=== PATIENT | female | born 1975 | race Caucasian/White ===

== ENCOUNTER 2019-08-05 19:21 | Emergency (ER) | payer BC, MEDICAID, OTHER ==
[~2019-08-05] VITALS: Ht 157.5 cm; Wt 86.2 kg
--- NOTE | 2019-08-05 20:04 | NUR ---
DR. MAYORGA AT BEDSIDE FOR MSE.
[2019-08-05] MEDS ORDERED: IV NORMAL SALINE 1000 ML BAG IV ONE (20:15)
[2019-08-05] MEDS ORDERED: ONDANSETRON 4 MG/2 ML VIAL IV ONE (20:15)
[2019-08-05] MEDS ORDERED: LORAZEPAM 0.5 MG TABLET PO ONE (20:30)
[2019-08-05] MEDS ORDERED: ONDANSETRON 4 MG/2 ML VIAL ONE (20:31)
[2019-08-05] MEDS ORDERED: LORAZEPAM 0.5 MG TABLET ONE (20:31)
[2019-08-05 20:33] LABS: BASOPHILS % (AUTO) 0.4 % (0.0-2.0); HEMOGLOBIN 13.1 g/dL (10.9-14.3); LYMPHOCYTES # (AUTO) 2.2 K/uL (20.0-40.0); LYMPHOCYTES % (AUTO) 21.1 % (20.5-51.5); MEAN CORPUSCULAR HEMOGLOBIN 28.8 uug (24.7-32.8); MEAN CORPUSCULAR HGB CONC 33 g/dL (32.3-35.6); MEAN CORPUSCULAR VOLUME 87.9 fL (75.5-95.3); MONOCYTES # (AUTO) 0.5 K/uL (2.0-10.0); MONOCYTES % (AUTO) 5.1 % (0.0-11.0); NEUTROPHILS # (AUTO) 7.5 K/uL (1.8-8.9); NEUTROPHILS % (AUTO) 73.4 % (38.5-71.5); PLATELET COUNT (AUTO) 423 K/uL (179-408); RED BLOOD CELL COUNT(AUTO) 4.55 MIL/uL (3.63-4.92); WHITE BLOOD COUNT (AUTO) 10.2 K/uL (3.8-11.8)
[2019-08-05 20:35] LABS: *BILIRUBIN,URIN NEGATIVE (NEGATIVE); *BLOOD, URINE 2+ (NEGATIVE); *CLARITY,URINE CLEAR (CLEAR); *COLOR,URINE YELLOW (YELLOW); *KETONES,URINE NEGATIVE (NEGATIVE); *UROBILINOGEN,URINE 0.2 E.U./dl (NORMAL); LEUKOCYTE ESTERASE ,URINE NEGATIVE (NEGATIVE); NITRITE, URINE NEGATIVE (NEGATIVE); UGLUCOSE NEGATIVE (NEGATIVE)
[2019-08-05 20:46] LABS: BILIRUBIN,DIRECT 0.1 mg/dL (0.0-0.2); BILIRUBIN,TOTAL 0.1 mg/dL (0.2-1.0); CREATININE 0.8 mg/dL (0.6-1.3); POTASSIUM 4.1 mmol/L (3.5-5.1)
[2019-08-05 20:55] LABS: BACTERIA,URINE FEW /HPF (NONE SEEN); WBC,URINE 0-3 /HPF (0-3)
[2019-08-05 20:56] LABS: SQUAMOUS EPITHELIAL CELL,UR MODERATE /HPF (NONE SEEN)
[2019-08-05 20:57] LABS: YEAST,URINE RARE /HPF (NONE SEEN)
[2019-08-05 21:33] VITALS: BP 143/88
--- NOTE | 2019-08-05 21:33 | NUR ---
Patient discharged to home in stable conditon. Written and verbal after care instructions given. Patient verbalizes understanding of instructions. PATIENT LEFT WITH STABLE GAIT.
== END 2019-08-05 21:34 | disposition home or self-care (01) ==
LOC: ER 19:22
DX: R11.10 Vomiting, unspecified (principal); R19.7 Diarrhea, unspecified; J45.909 Unspecified asthma, uncomplicated
CPT/HCPCS: 36415; 80048; 80076; 81000; 81001; 83690; 84702; 85025; 87086; 96361; 96374; 99283; J2405; A4663; J7030

== ENCOUNTER 2020-12-10 18:55 | Emergency (ER) | payer MEDICAID ==
[~2020-12-10] VITALS: Ht 157.5 cm; Wt 72.6 kg
--- NOTE | 2020-12-10 19:33 | NUR ---
MD ROLDAN in room to do MSE.
[2020-12-10] MEDS ORDERED: IV NORMAL SALINE 1000 ML BAG IV ONE (20:00)
[2020-12-10 20:13] LABS: BASOPHILS % (AUTO) 0.6 % (0.0-2.0); EOSINOPHILS % (AUTO) 0.5 % (0.0-7.0); HEMATOCRIT 39.1 % (31.2-41.9); HEMOGLOBIN 13.1 g/dL (10.9-14.3); LYMPHOCYTES # (AUTO) 3.1 K/uL (20.0-40.0); LYMPHOCYTES % (AUTO) 48.4 % (20.5-51.5); MEAN CORPUSCULAR HEMOGLOBIN 29.1 uug (24.7-32.8); MEAN CORPUSCULAR HGB CONC 33 g/dL (32.3-35.6); MEAN CORPUSCULAR VOLUME 87.1 fL (75.5-95.3); MONOCYTES # (AUTO) 0.5 K/uL (2.0-10.0); MONOCYTES % (AUTO) 8.3 % (0.0-11.0); NEUTROPHILS # (AUTO) 2.7 K/uL (1.8-8.9); NEUTROPHILS % (AUTO) 42.2 % (38.5-71.5); PLATELET COUNT (AUTO) 447 K/uL (179-408); RED BLOOD CELL COUNT(AUTO) 4.49 MIL/uL (3.63-4.92); WHITE BLOOD COUNT (AUTO) 6.4 K/uL (3.8-11.8)
[2020-12-10 20:20] LABS: CREATININE 0.7 mg/dL (0.6-1.3); POTASSIUM 3.1 mmol/L (3.5-5.1)
--- NOTE | 2020-12-10 20:21 | NUR ---
Patient is resting in bed, no acute distress noted at this time.
[2020-12-10 20:25] LABS: BILIRUBIN,DIRECT 0.1 mg/dL (0.0-0.2); BILIRUBIN,TOTAL 0.3 mg/dL (0.2-1.0); TOTAL PROTEIN, SERUM 7.6 g/dL (6.4-8.2)
[2020-12-10] MEDS ORDERED: POTASSIUM CHLORIDE 20 MEQ TAB.PRT.SR PO ONE (20:45)
[2020-12-10] MEDS ORDERED: POTASSIUM CHLORIDE 20 MEQ TAB.PRT.SR ONE (21:00)
[2020-12-10 21:40] VITALS: BP 136/99
--- NOTE | 2020-12-10 21:40 | NUR ---
Patient discharged to home in stable condition. Written and verbal after care instructions given. Patient verbalizes understanding of instructions. Stressed follow up or return to ER for worsening s/s. Patient ambulates without issue, given Rx, left with all belongings.
== END 2020-12-10 21:40 | disposition other institution (70) ==
LOC: ER 18:57
DX: R10.84 Generalized abdominal pain (principal); R19.7 Diarrhea, unspecified; J45.909 Unspecified asthma, uncomplicated
CPT/HCPCS: 36415; 83690; 85025; A4663; J7030

== ENCOUNTER 2021-03-10 18:52 | Emergency (ER) | payer MEDICAID ==
[~2021-03-10] VITALS: Ht 157.5 cm; Wt 66.7 kg
[2021-03-10] MEDS ORDERED: mesalamine PO (19:27)
--- NOTE | 2021-03-10 19:51 | NUR ---
MD Ramos in room to do MSE.
--- NOTE | 2021-03-10 20:09 | NUR ---
automotive brake technician in room to take blood from patient for labs.
[2021-03-10] MEDS: IV NORMAL SALINE 1000 ML BAG IV ONE ×2 (20:16→21:16)
[2021-03-10] MEDS: PANTOPRAZOLE SODIUM 40 MG VIAL IV ONE (20:17)
[2021-03-10] MEDS ORDERED: ONDANSETRON 4 MG/2 ML VIAL ONE (20:18)
[2021-03-10] MEDS ORDERED: PANTOPRAZOLE SODIUM 40 MG VIAL ONE (20:18)
[2021-03-10] MEDS: ONDANSETRON 4 MG/2 ML VIAL IV ONE (20:19)
[2021-03-10 20:24] LABS: *BILIRUBIN,URIN NEGATIVE (NEGATIVE); *CLARITY,URINE CLEAR (CLEAR); *COLOR,URINE YELLOW (YELLOW); *KETONES,URINE NEGATIVE (NEGATIVE); *UROBILINOGEN,URINE 0.2 E.U./dl (NORMAL); LEUKOCYTE ESTERASE ,URINE 1+ (NEGATIVE); NITRITE, URINE NEGATIVE (NEGATIVE); UGLUCOSE NEGATIVE (NEGATIVE)
[2021-03-10 20:26] LABS: BASOPHILS % (AUTO) 0.4 % (0.0-2.0); EOSINOPHILS % (AUTO) 0.3 % (0.0-7.0); HEMATOCRIT 34.6 % (31.2-41.9); HEMOGLOBIN 11.8 g/dL (10.9-14.3); LYMPHOCYTES # (AUTO) 2.3 K/uL (20.0-40.0); LYMPHOCYTES % (AUTO) 31.3 % (20.5-51.5); MEAN CORPUSCULAR HEMOGLOBIN 30.7 uug (24.7-32.8); MEAN CORPUSCULAR HGB CONC 34 g/dL (32.3-35.6); MEAN CORPUSCULAR VOLUME 90.5 fL (75.5-95.3); MONOCYTES # (AUTO) 0.6 K/uL (2.0-10.0); MONOCYTES % (AUTO) 8.5 % (0.0-11.0); NEUTROPHILS # (AUTO) 4.3 K/uL (1.8-8.9); NEUTROPHILS % (AUTO) 59.5 % (38.5-71.5); PLATELET COUNT (AUTO) 460 K/uL (179-408); RED BLOOD CELL COUNT(AUTO) 3.83 MIL/uL (3.63-4.92); WHITE BLOOD COUNT (AUTO) 7.2 K/uL (3.8-11.8)
[2021-03-10 20:27] LABS: *BLOOD, URINE TRACE LYSED (NEGATIVE)
[2021-03-10 20:32] LABS: ALANINE AMINOTRANSFERASE 29 U/L (14-59); ALKALINE PHOSPHATASE 52 U/L (50-136); ASPARTATE AMINOTRANSFERASE 16 U/L (15-37); BILIRUBIN,DIRECT 0.1 mg/dL (0.0-0.2); BILIRUBIN,TOTAL 0.2 mg/dL (0.2-1.0); CARBON DIOXIDE 30 mmol/L (21-32); CHLORIDE 99 mmol/L (98-107); CREATININE 0.7 mg/dL (0.6-1.3); GLUCOSE 113 mg/dL (74-106); LIPASE 130 U/L (73-393); TOTAL PROTEIN, SERUM 7.4 g/dL (6.4-8.2); UREA NITROGEN, BLOOD 3 mg/dL (7-18)
[2021-03-10 20:40] LABS: BACTERIA,URINE NONE SEEN /HPF (NONE SEEN); RBC,URINE 0-3 /HPF (0-3); SQUAMOUS EPITHELIAL CELL,UR FEW /HPF (NONE SEEN); WBC,URINE 0-3 /HPF (0-3)
--- NOTE | 2021-03-10 21:05 | NUR ---
Jana at bedside
[2021-03-10] MEDS: POTASSIUM CHLORIDE 20 MEQ TAB.PRT.SR PO ONE (21:16)
[2021-03-10] MEDS ORDERED: POTASSIUM CHLORIDE 20 MEQ TAB.PRT.SR ONE (21:36)
[2021-03-10] MEDS ORDERED: ONDA8TAB13 PO (22:11)
[2021-03-10 22:35] VITALS: BP 127/79
--- NOTE | 2021-03-10 22:35 | NUR ---
IV NS started 2115 and IV NS stop time was 2215.
--- NOTE | 2021-03-10 22:35 | NUR ---
Patient discharged to home in stable condition. Written and verbal after care instructions given. Patient verbalizes understanding of instructions. Stressed follow up or return to ER for worsening s/s. Patient ambulates with steady gait, V/S stable, IV line removed, patient left with all personal belongings.
== END 2021-03-10 22:35 | disposition home or self-care (01) ==
LOC: ER 18:52
DX: K52.9 Noninfective gastroenteritis and colitis, unspecified (principal); K29.70 Gastritis, unspecified, without bleeding; E87.6 Hypokalemia; R11.10 Vomiting, unspecified; J45.909 Unspecified asthma, uncomplicated; Z82.49 Family history of ischemic heart disease and other diseases of the circulatory system
CPT/HCPCS: 36415; 80048; 80076; 81001; 83690; 84702; 85025; 96361 ×2; 96374; 96375; 99284; C9113; J2405; A4663; J7030

== ENCOUNTER 2023-01-02 12:23 | Emergency (ER) | payer MEDICAID ==
[~2023-01-02] VITALS: Ht 157.5 cm; Wt 54.4 kg
[~2023-01-02 12:23] MED LIST: ONDA8TAB13 PO; mesalamine PO
--- NOTE | 2023-01-02 13:01 | NUR ---
Pt seen by Safety measures in place. Will continue to monitor.
[2023-01-02] MEDS ORDERED: IV NORMAL SALINE 1000 ML BAG IV ONE (13:15)
[2023-01-02] MEDS ORDERED: ACETAMINOPHEN ES 500 MG TABLET PO ONE (13:15)
[2023-01-02] MEDS ORDERED: ACETAMINOPHEN ES 500 MG TABLET ONE (13:20)
[2023-01-02 13:40] LABS: HEMATOCRIT 37.4 % (31.2-41.9); MEAN CORPUSCULAR HEMOGLOBIN 30.2 uug (24.7-32.8); MEAN CORPUSCULAR VOLUME 90.2 fL (75.5-95.3); PLATELET COUNT (AUTO) 412 K/uL (179-408)
[2023-01-02 13:49] LABS: CREATININE 0.7 mg/dL (0.6-1.3); POTASSIUM 3.3 mmol/L (3.5-5.1)
[2023-01-02 13:55] LABS: BILIRUBIN,DIRECT 0.1 mg/dL (0.0-0.2); BILIRUBIN,TOTAL 0.3 mg/dL (0.2-1.0); TOTAL PROTEIN, SERUM 7.5 g/dL (6.4-8.2)
--- NOTE | 2023-01-02 14:05 | NUR ---
Pt walked to bathroom w/ steady gait, urine collected and taken to LAB.
[2023-01-02 15:02] LABS: *BILIRUBIN,URIN NEGATIVE (NEGATIVE); *CLARITY,URINE CLEAR (CLEAR); *COLOR,URINE YELLOW (YELLOW); *KETONES,URINE NEGATIVE (NEGATIVE); *UROBILINOGEN,URINE 0.2 E.U./dl (NORMAL); LEUKOCYTE ESTERASE ,URINE NEGATIVE (NEGATIVE); NITRITE, URINE NEGATIVE (NEGATIVE); UGLUCOSE NEGATIVE (NEGATIVE)
[2023-01-02 15:17] LABS: *BLOOD, URINE NEGATIVE (NEGATIVE)
[2023-01-02 15:18] LABS: *URINE HCG, QUAL NEGATIVE (NEGATIVE); BACTERIA,URINE FEW /HPF (NONE SEEN); SQUAMOUS EPITHELIAL CELL,UR FEW /HPF (NONE SEEN); WBC,URINE 0-3 /HPF (0-3)
--- NOTE | 2023-01-02 16:07 | NUR ---
IV removed. Catheter intact and site benign. Pressure and 4x4 gauze applied to site. No bleeding noted.
[2023-01-02 16:08] VITALS: BP 115/70
--- NOTE | 2023-01-02 16:08 | NUR ---
Patient discharged to home in stable condition. Written and verbal after care instructions given. Patient verbalizes understanding of instructions. Stressed follow up or return to ER for worsening s/s.
== END 2023-01-02 16:08 | disposition home or self-care (01) ==
LOC: ER 12:23
DX: R19.7 Diarrhea, unspecified (principal); E87.6 Hypokalemia; Z86.16 Personal history of COVID-19; J45.909 Unspecified asthma, uncomplicated
CPT/HCPCS: 99284; 96360; 80076; 80048; 81001; 84703; 83690; 85025; 85651; 36415; J7040; A4663; A9150

== ENCOUNTER 2023-02-21 07:55 | Emergency (ER) | payer BC, OTHER ==
[~2023-02-21] VITALS: Ht 157.5 cm; Wt 56.7 kg
--- NOTE | 2023-02-21 08:00 | NUR ---
RECEIVED PT IN NAD; VSS. PT COMPLAINS OF ABD. PAIN 03/25 ; N/V/D X2 DAYS.
[2023-02-21] MEDS ORDERED: MORPHINE SULFATE 4 MG/1 ML DISP.SYRIN ONE (08:40)
[2023-02-21] MEDS ORDERED: ONDANSETRON 4 MG/2 ML VIAL ONE (08:40)
[2023-02-21] MEDS ORDERED: IV NS 1000 ML 1,000 ML IV ONE (08:45)
[2023-02-21] MEDS ORDERED: ONDANSETRON 4 MG/2 ML VIAL IV ONE (08:45)
[2023-02-21] MEDS ORDERED: MORPHINE SULFATE 4 MG/1 ML DISP.SYRIN IV ONE (08:45)
[2023-02-21 08:56] LABS: HEMATOCRIT 35.9 % (31.2-41.9); MEAN CORPUSCULAR VOLUME 92.3 fL (75.5-95.3); PLATELET COUNT (AUTO) 360 K/uL (179-408)
[2023-02-21 09:08] LABS: CARBON DIOXIDE 25 mmol/L (21-32); CHLORIDE 96 mmol/L (98-107); CREATININE 0.9 mg/dL (0.6-1.3); GLUCOSE 106 mg/dL (74-106); POTASSIUM 4.1 mmol/L (3.5-5.1); UREA NITROGEN, BLOOD 9 mg/dL (7-18)
[2023-02-21] MEDS ORDERED: IV NORMAL SALINE 250 ML IV ONE (09:09)
[2023-02-21] MEDS ORDERED: IOHEXOL 300MG/ML 100 ML INFUS..BTL ONE (09:09)
[2023-02-21] MEDS ORDERED: SWABABLE VALVE TRANSFER SET EA MC ONE (09:09)
[2023-02-21 09:18] LABS: ALANINE AMINOTRANSFERASE 17 U/L (14-59); ALKALINE PHOSPHATASE 48 U/L (50-136); ASPARTATE AMINOTRANSFERASE 10 U/L (15-37); BILIRUBIN,DIRECT 0.3 mg/dL (0.0-0.2); BILIRUBIN,TOTAL 0.7 mg/dL (0.2-1.0); LIPASE 42 U/L (73-393); TOTAL PROTEIN, SERUM 7.8 g/dL (6.4-8.2)
--- NOTE | 2023-02-21 09:25 | NUR ---
PT TO CT SCAN
[2023-02-21 10:35] LABS: *BILIRUBIN,URIN NEGATIVE (NEGATIVE); *BLOOD, URINE 2+ (NEGATIVE); *CLARITY,URINE CLEAR (CLEAR); *COLOR,URINE YELLOW (YELLOW); *KETONES,URINE 1+ (NEGATIVE); *UROBILINOGEN,URINE 0.2 E.U./dl (NORMAL); LEUKOCYTE ESTERASE ,URINE TRACE (NEGATIVE); NITRITE, URINE NEGATIVE (NEGATIVE); PH,URINE 6.5 (5.0-8.0); UGLUCOSE NEGATIVE (NEGATIVE)
[2023-02-21 11:15] LABS: BACTERIA,URINE NONE SEEN /HPF (NONE SEEN); CALCIUM CARBONATE CRYSTALS,UR NONE SEEN /HPF (NONE SEEN); CALCIUM OXALATE CRYSTALS,UR NONE SEEN /HPF (NONE SEEN); CALCIUM PHOSPHATE CRYSTALS,UR NONE SEEN /HPF (NONE SEEN); COARSE GRANULAR CASTS,URINE NONE SEEN /LPF; CYSTINE CRYSTALS,URINE NONE SEEN /HPF (NONE SEEN); FATTY CASTS,URINE NONE SEEN /LPF (NONE SEEN); MUCUS,URINE NONE SEEN /LPF (0-FEW); RED BLOOD CELL CASTS,URINE NONE SEEN /LPF (NONE SEEN); SPERM,URINE NONE SEEN /HPF (NONE SEEN); SQUAMOUS EPITHELIAL CELL,UR FEW /HPF (NONE SEEN); TRICHOMONAS,URINE NONE SEEN /HPF (NONE SEEN); TRIPLE PHOSPHATE CRYSTAL,UR NONE SEEN /HPF (NONE SEEN); TYROSINE CRYSTAL,URINE NONE SEEN /HPF (NONE SEEN); URIC ACID CRYSTALS,URINE NONE SEEN /HPF (NONE SEEN); URINE AMORPHOUS PHOSPHATES NONE SEEN /HPF; URINE AMORPHOUS URATE NONE SEEN /HPF; WAXY CASTS,URINE NONE SEEN /LPF (NONE SEEN); WBC,URINE 0-3 /HPF (0-3); YEAST,URINE NONE SEEN /HPF (NONE SEEN)
[2023-02-21] MEDS ORDERED: ONDA4TAB11 PO (12:51)
--- NOTE | 2023-02-21 13:13 | NUR ---
IV removed. Catheter intact and site benign. Pressure and 4x4 gauze applied to site. No bleeding noted.
[2023-02-21 13:14] VITALS: BP 126/82
== END 2023-02-21 13:15 | disposition home or self-care (01) ==
LOC: ER 07:55
DX: K52.9 Noninfective gastroenteritis and colitis, unspecified (principal); J45.909 Unspecified asthma, uncomplicated; R10.2 Pelvic and perineal pain; Z79.899 Other long term (current) drug therapy
CPT/HCPCS: 36415; 83690; 85025; 93005; A4663; J2270; J2405; J7040; Q9967

== ENCOUNTER 2023-07-23 17:16 | Emergency (ER) | payer BC, OTHER ==
[~2023-07-23] VITALS: Ht 157.5 cm; Wt 61.2 kg
[~2023-07-23 17:16] MED LIST changes: +ONDA4TAB11 PO
[2023-07-23] MEDS ORDERED: IV NORMAL SALINE 1000 ML BAG IV ONE (18:00)
[2023-07-23] MEDS ORDERED: DEXAMETHASONE SOD PHOSPHATE 4 MG INJ IV ONE (18:00)
[2023-07-23] MEDS ORDERED: DEXAMETHASONE SOD PHOSPHATE 10 MG INJ ONE (18:12)
[2023-07-23 18:36] LABS: CALCIUM 9.4 mg/dL (8.5-10.1); CARBON DIOXIDE 30 mmol/L (21-32); CHLORIDE 95 mmol/L (98-107); CREATININE 0.8 mg/dL (0.6-1.3); GLUCOSE 99 mg/dL (74-106); POTASSIUM 2.9 mmol/L (3.5-5.1); SODIUM SERUM 135 mmol/L (136-145); UREA NITROGEN, BLOOD 4 mg/dL (7-18)
[2023-07-23 18:41] LABS: BASOPHILS % (AUTO) 0.5 % (0.0-2.0); EOSINOPHILS # (AUTO) 0.1 K/uL (0.0-0.7); EOSINOPHILS % (AUTO) 1.1 % (0.0-7.0); HEMATOCRIT 36.9 % (31.2-41.9); HEMOGLOBIN 12.2 g/dL (10.9-14.3); LYMPHOCYTES # (AUTO) 1.4 K/uL (0.8-4.8); MEAN CORPUSCULAR HEMOGLOBIN 29.9 uug (24.7-32.8); MEAN CORPUSCULAR HGB CONC 33 g/dL (32.3-35.6); MEAN CORPUSCULAR VOLUME 90.2 fL (75.5-95.3); MONOCYTES # (AUTO) 0.5 K/uL (0.1-1.30); MONOCYTES % (AUTO) 9.8 % (0.0-11.0); NEUTROPHILS % (AUTO) 59.6 % (38.5-71.5); PLATELET COUNT (AUTO) 428 K/uL (179-408); RED BLOOD CELL COUNT(AUTO) 4.09 MIL/uL (3.63-4.92); RED CELL DISTRIBUTION WIDTH 13.8 % (12.3-17.7); WHITE BLOOD COUNT (AUTO) 4.9 K/uL (3.8-11.8)
[2023-07-23 18:49] LABS: ALANINE AMINOTRANSFERASE 19 U/L (14-59); ALBUMIN 3.9 g/dL (3.4-5.0); ALKALINE PHOSPHATASE 65 U/L (50-136); ASPARTATE AMINOTRANSFERASE 14 U/L (15-37); BILIRUBIN,DIRECT 0.1 mg/dL (0.0-0.2); BILIRUBIN,TOTAL 0.3 mg/dL (0.2-1.0); NT-PRO BNP 84 pg/mL (0-125); TOTAL PROTEIN, SERUM 8.7 g/dL (6.4-8.2)
[2023-07-23] MEDS ORDERED: POTASSIUM CHLORIDE 20 MEQ TAB.PRT.SR PO ONE (19:30)
[2023-07-23] MEDS ORDERED: POTASSIUM CHLORIDE 20 MEQ TAB.PRT.SR ONE (19:51)
[2023-07-23 21:15] VITALS: BP 113/63; TEMP 98.6; O2SAT 98
== END 2023-07-23 21:05 | disposition home or self-care (01) ==
LOC: ER 17:24
DX: R11.10 Vomiting, unspecified (principal); R19.7 Diarrhea, unspecified; E87.6 Hypokalemia; J45.909 Unspecified asthma, uncomplicated; Z79.899 Other long term (current) drug therapy; Z20.822 Contact with and (suspected) exposure to COVID-19
CPT/HCPCS: 99284; 96374; 71045; 96361; 87426; 87804 ×2; 80076; 80048; 83880; 85025; 84145; 85730; 87040 ×2; 84484; 36415; 83605; J1100; J7040; A4663

== ENCOUNTER 2023-07-27 19:29 | Emergency (ER) | payer BC, OTHER ==
[~2023-07-27] VITALS: Ht 157.5 cm; Wt 61.2 kg
[2023-07-27] MEDS ORDERED: KETOROLAC TROMETHAMINE 15 MG INJ IVP ONE (20:00)
[2023-07-27] MEDS ORDERED: IV NORMAL SALINE 1000 ML BAG IV ONE (20:00)
[2023-07-27] MEDS ORDERED: FAMOTIDINE. 20 MG/2 ML VIAL IV ONE (20:00)
[2023-07-27] MEDS ORDERED: ONDANSETRON 4 MG/2 ML VIAL IV ONE (20:00)
[2023-07-27] MEDS ORDERED: KETOROLAC TROMETHAMINE 15 MG INJ ONE (20:20)
[2023-07-27 20:29] LABS: BASOPHILS # (AUTO) 0.2 K/UL (0.0-0.2); BASOPHILS % (AUTO) 3.3 % (0.0-2.0); EOSINOPHILS # (AUTO) 0.2 K/uL (0.0-0.7); EOSINOPHILS % (AUTO) 3.4 % (0.0-7.0); HEMATOCRIT 38.3 % (31.2-41.9); HEMOGLOBIN 12.8 g/dL (10.9-14.3); LYMPHOCYTES # (AUTO) 1.9 K/uL (0.8-4.8); LYMPHOCYTES % (AUTO) 40.1 % (20.5-51.5); MEAN CORPUSCULAR HEMOGLOBIN 29.9 uug (24.7-32.8); MEAN CORPUSCULAR HGB CONC 33 g/dL (32.3-35.6); MEAN CORPUSCULAR VOLUME 89.6 fL (75.5-95.3); MONOCYTES # (AUTO) 0.4 K/uL (0.1-1.30); MONOCYTES % (AUTO) 9.1 % (0.0-11.0); NEUTROPHILS # (AUTO) 2.1 K/uL (1.8-8.9); NEUTROPHILS % (AUTO) 44.1 % (38.5-71.5); PLATELET COUNT (AUTO) 463 K/uL (179-408); RED BLOOD CELL COUNT(AUTO) 4.27 MIL/uL (3.63-4.92); RED CELL DISTRIBUTION WIDTH 13.6 % (12.3-17.7); WHITE BLOOD COUNT (AUTO) 4.8 K/uL (3.8-11.8)
[2023-07-27 20:31] LABS: CALCIUM 9.4 mg/dL (8.5-10.1); CREATININE 0.7 mg/dL (0.6-1.3); POTASSIUM 3.3 mmol/L (3.5-5.1)
[2023-07-27 20:37] LABS: ALBUMIN 3.8 g/dL (3.4-5.0); BILIRUBIN,DIRECT 0.1 mg/dL (0.0-0.2); BILIRUBIN,TOTAL 0.3 mg/dL (0.2-1.0); TOTAL PROTEIN, SERUM 8.2 g/dL (6.4-8.2)
[2023-07-27] MEDS ORDERED: PHYT5TAB GT (21:45)
[2023-07-27] MEDS ORDERED: PHYTONADIONE 5 MG TABLET PO ONE (21:45)
[2023-07-27] MEDS ORDERED: POTASSIUM CHLORIDE 20 MEQ TAB.PRT.SR PO ONE (21:45)
[2023-07-27] MEDS ORDERED: ONDA4TAB11 PO (21:45)
[2023-07-27 22:17] VITALS: BP 117/75; TEMP 98.5; O2SAT 99
== END 2023-07-27 22:18 | disposition home or self-care (01) ==
LOC: ER 19:33
DX: R11.0 Nausea (principal); R19.7 Diarrhea, unspecified; E87.6 Hypokalemia; K90.9 Intestinal malabsorption, unspecified; R10.9 Unspecified abdominal pain; R79.1 Abnormal coagulation profile; J45.909 Unspecified asthma, uncomplicated; Z79.899 Other long term (current) drug therapy
CPT/HCPCS: 99284; 96374; 96375; 96361; 80076; 80048; 83690; 83735; 85025; 85610; 36415; J3490; J1885; J2405; J7040; A4606; A4663

== ENCOUNTER 2023-10-29 14:15 | Emergency (ER) | payer BC, OTHER ==
[~2023-10-29] VITALS: Ht 157.5 cm; Wt 63.5 kg
[~2023-10-29 14:15] MED LIST changes: +PHYT5TAB GT
[2023-10-29] MEDS ORDERED: FAMO20TA8 PO (14:49)
[2023-10-29] MEDS ORDERED: [UNRECOGNIZED DRUG - OTHER] (14:49)
[2023-10-29] MEDS ORDERED: BUDE0.5A4 NEB (14:49)
[2023-10-29] MEDS ORDERED: ACET1TAB23 PO (14:53)
[2023-10-29 15:03] VITALS: BP 114/77; O2SAT 98
== END 2023-10-29 15:03 | disposition home or self-care (01) ==
LOC: ER 14:36
DX: S46.912A Strain of unspecified muscle, fascia and tendon at shoulder and upper arm level, left arm, initial encounter (principal); J45.909 Unspecified asthma, uncomplicated; Z79.899 Other long term (current) drug therapy; X50.1XXA Overexertion from prolonged static or awkward postures, initial encounter; Y93.89 Activity, other specified; Y92.89 Other specified places as the place of occurrence of the external cause; Y99.8 Other external cause status
CPT/HCPCS: A4606; A4663

== ENCOUNTER 2024-12-03 21:16 | Inpatient (IN) | payer BC ==
[~2024-12-03] VITALS: Ht 154.9 cm; Wt 63.5 kg
[~2024-12-03 21:16] MED LIST changes: +ACET1TAB23 PO; +BUDE0.5A4 NEB; +FAMO20TA8 PO; +[UNRECOGNIZED DRUG - OTHER]
[2024-12-03] MEDS ORDERED: ONDANSETRON 4 MG/2 ML VIAL ONE (23:45)
[2024-12-03] MEDS ORDERED: HYDROMORPHONE 1 MG/1 ML DISP.SYRIN ONE (23:46)
[2024-12-03 23:50] LABS: BASOPHILS % (AUTO) 0.1 % (0.0-2.0); HEMATOCRIT 39.5 % (31.2-41.9); HEMOGLOBIN 13.3 g/dL (10.9-14.3); LYMPHOCYTES # (AUTO) 0.5 K/uL (0.8-4.8); LYMPHOCYTES % (AUTO) 1.7 % (20.5-51.5); MEAN CORPUSCULAR HEMOGLOBIN 30.3 uug (24.7-32.8); MEAN CORPUSCULAR HGB CONC 34 g/dL (32.3-35.6); MEAN CORPUSCULAR VOLUME 90.2 fL (75.5-95.3); MONOCYTES # (AUTO) 1.4 K/uL (0.1-1.30); MONOCYTES % (AUTO) 4.9 % (0.0-11.0); NEUTROPHILS # (AUTO) 25.9 K/uL (1.8-8.9); NEUTROPHILS % (AUTO) 93.3 % (38.5-71.5); PLATELET COUNT (AUTO) 342 K/uL (179-408); RED BLOOD CELL COUNT(AUTO) 4.38 MIL/uL (3.63-4.92); RED CELL DISTRIBUTION WIDTH 13.9 % (12.3-17.7); WHITE BLOOD COUNT (AUTO) 27.8 K/uL (3.8-11.8)
[2024-12-03 23:53] LABS: DIFFERENTIAL COMMENT 1
[2024-12-03] MEDS ORDERED: methylPREDNISolone SOD SUCC 125 MG/2 ML VIAL ONE (23:57)
[2024-12-03 23:58] LABS: CALCIUM 8.6 mg/dL (8.5-10.1); CARBON DIOXIDE 25 mmol/L (21-32); CHLORIDE 96 mmol/L (98-107); CREATININE 1.6 mg/dL (0.6-1.3); GLUCOSE 131 mg/dL (74-106); POTASSIUM 3.4 mmol/L (3.5-5.1); SODIUM SERUM 134 mmol/L (136-145); UREA NITROGEN, BLOOD 17 mg/dL (7-18)
[2024-12-03] MEDS ORDERED: AZITHROMYCIN 500MG/ D5W 250ML IVPB **ER PYXIS ONLY IV ONE (23:58)
[2024-12-03] MEDS ORDERED: ALBUTEROL SULFATE 2.5 MG/3 ML NEBU ONE (23:59)
[2024-12-03] MEDS ORDERED: IPRATROPIUM BROMIDE 0.5 MG/2.5 ML NEBU ONE (23:59)
[2024-12-04] VITALS (19 sets, daily range): BP systolic 99–140; BP diastolic 67–93; TEMP 97.8–98.7; O2SAT 89–100
[2024-12-04] MEDS: methylPREDNISolone SOD SUCC 125 MG/2 ML VIAL IV ONE
[2024-12-04] MEDS: ONDANSETRON 4 MG/2 ML VIAL IV ONE (00:01)
[2024-12-04] MEDS: HYDROMORPHONE 1 MG/1 ML DISP.SYRIN IV ONE ×2 (00:02→02:23)
[2024-12-04] MEDS: AZITHROMYCIN IV 500 MG in IV DEXTROSE 5% 250 ML IV ONE (00:04)
[2024-12-04] MEDS: ALBUTEROL SULFATE 2.5 MG/3 ML NEBU NEB ONE (00:07)
[2024-12-04] MEDS: IPRATROPIUM BROMIDE 0.5 MG/2.5 ML NEBU NEB ONE (00:07)
[2024-12-04 00:11] LABS: ALANINE AMINOTRANSFERASE 23 U/L (14-59); ALBUMIN 2.8 g/dL (3.4-5.0); ALKALINE PHOSPHATASE 88 U/L (50-136); ASPARTATE AMINOTRANSFERASE 19 U/L (15-37); BILIRUBIN,DIRECT 0.6 mg/dL (0.0-0.2); BILIRUBIN,TOTAL 0.9 mg/dL (0.2-1.0); NT-PRO BNP 919 pg/mL (0-125)
[2024-12-04] MEDS: IV NORMAL SALINE 1000 ML BAG IV ONE ×2 (00:43→02:38)
[2024-12-04] MEDS ORDERED: TRAM50TA2 PO (00:45)
[2024-12-04] MEDS ORDERED: FLUT1BLS6 (00:45)
[2024-12-04] MEDS ORDERED: CEFTRIAXONE /D5W 50ML IVPB **ER PYXIS IV ONE (00:45)
[2024-12-04] MEDS ORDERED: SUMA100T16 PO (00:45)
[2024-12-04] MEDS ORDERED: ALBUTEROL SULFATE 2.5 MG/3 ML NEBU ONE (00:53)
[2024-12-04] MEDS: CEFTRIAXONE 1 G in IV DEXTROSE 5% 50 ML IV ONE (01:09)
[2024-12-04] MEDS ORDERED: SWABABLE VALVE TRANSFER SET EA MC ONE (01:13)
[2024-12-04] MEDS ORDERED: IV NORMAL SALINE 250 ML IV ONE (01:13)
[2024-12-04] MEDS ORDERED: IOHEXOL 350 100 ML INFUS..BTL ONE (01:14)
[2024-12-04 02:21] LABS: LACTIC ACID 4.4 mmol/L (0.4-2.0)
[2024-12-04] MEDS ORDERED: HYDROMORPHONE 1 MG/1 ML DISP.SYRIN ONE (02:21)
[2024-12-04 02:37] LABS: ABG BASE EXCESS -8.1 mmol/L (-2.0-3.0); ABG HCO3 19.8 mmol/L (21.0-28.0); ABG PCO2 49.5 mmHg (32.0-45.0); ABG PH 7.219 (7.350-7.450); ABG PO2 104.1 mmHg (83.0-108.0); ABG SITE RIGHT RADIAL; ABG TOTAL HEMOGLOBIN 13.6 G/dL (12.0-16.0); AaDO2 96.6 mmHg; COHb 0.3 % (0.5-1.5); MetHb 0.2 % (0.0-1.5); O2Hb 96.5 % (94.0-98.0)
[2024-12-04] MEDS ORDERED: ONDANSETRON 4 MG/2 ML VIAL IV PRN (03:45)
[2024-12-04] MEDS ORDERED: REMEDY ESSENTIAL ZINC PASTE 113 GM TP PRN (03:45)
[2024-12-04] MEDS ORDERED: LEVALBUTEROL HCL NEB 0.63 MG/3 ML NEBU NEB PRN (03:45)
[2024-12-04 05:11] LABS: BASOPHILS % (AUTO) 0.1 % (0.0-2.0); EOSINOPHILS % (AUTO) 0.1 % (0.0-7.0); HEMATOCRIT 41.8 % (31.2-41.9); HEMOGLOBIN 13.8 g/dL (10.9-14.3); LYMPHOCYTES # (AUTO) 0.6 K/uL (0.8-4.8); LYMPHOCYTES % (AUTO) 3.5 % (20.5-51.5); MEAN CORPUSCULAR HEMOGLOBIN 29.9 uug (24.7-32.8); MEAN CORPUSCULAR HGB CONC 33 g/dL (32.3-35.6); MEAN CORPUSCULAR VOLUME 90.7 fL (75.5-95.3); MONOCYTES # (AUTO) 0.7 K/uL (0.1-1.30); MONOCYTES % (AUTO) 3.6 % (0.0-11.0); NEUTROPHILS # (AUTO) 17.1 K/uL (1.8-8.9); NEUTROPHILS % (AUTO) 92.7 % (38.5-71.5); PLATELET COUNT (AUTO) 341 K/uL (179-408); RED BLOOD CELL COUNT(AUTO) 4.61 MIL/uL (3.63-4.92); WHITE BLOOD COUNT (AUTO) 18.4 K/uL (3.8-11.8)
[2024-12-04] MEDS: LORAZEPAM 2 MG/1 ML VIAL IV ONE (05:11)
[2024-12-04 05:29] LABS: DIFFERENTIAL COMMENT 1
[2024-12-04 05:35] LABS: *AMPHETAMINE, URINE NEGATIVE (NEGATIVE); *BARBITURATE, URINE NEGATIVE (NEGATIVE); *BENZODIAZEPINE, URINE NEGATIVE (NEGATIVE); *CANNABINOID, URINE NEGATIVE (NEGATIVE); *COCCAINE, URINE NEGATIVE (NEGATIVE); *OPIATE, URINE POSITIVE (NEGATIVE); *PHENCYCLIDINE SCREEN,URINE NEGATIVE (NEGATIVE); FENTANYL, URINE NEGATIVE (NEGATIVE)
[2024-12-04 05:45] LABS: *BILIRUBIN,URIN NEGATIVE (NEGATIVE); *BLOOD, URINE 2+ (NEGATIVE); *CLARITY,URINE CLEAR (CLEAR); *COLOR,URINE YELLOW (YELLOW); *KETONES,URINE NEGATIVE (NEGATIVE); *PROTEIN,URINE 2+ (NEGATIVE); *UROBILINOGEN,URINE 0.2 E.U./dl (NORMAL); LEUKOCYTE ESTERASE ,URINE NEGATIVE (NEGATIVE); NITRITE, URINE NEGATIVE (NEGATIVE); PH,URINE 5.5 (5.0-8.0); UGLUCOSE NEGATIVE (NEGATIVE)
[2024-12-04 05:48] LABS: CALCIUM 8.1 mg/dL (8.5-10.1); CREATININE 1.2 mg/dL (0.6-1.3); PHOSPHOROUS 4.1 mg/dL (2.5-4.9); POTASSIUM 3.3 mmol/L (3.5-5.1)
[2024-12-04 06:02] LABS: MAGNESIUM 1.9 mg/dL (1.8-2.4)
[2024-12-04 06:03] LABS: BACTERIA,URINE MODERATE /HPF (NONE SEEN); WBC,URINE 0-3 /HPF (0-3)
[2024-12-04 06:04] LABS: SQUAMOUS EPITHELIAL CELL,UR MODERATE /HPF (NONE SEEN); YEAST,URINE MODERATE /HPF (NONE SEEN)
[2024-12-04 06:05] LABS: URINE AMORPHOUS URATE FEW /HPF
[2024-12-04 06:35] LABS: ABG HCO3 19.4 mmol/L (21.0-28.0); ABG PCO2 46.3 mmHg (32.0-45.0); ABG PH 7.239 (7.350-7.450); ABG SITE RIGHT RADIAL; COHb 0.1 % (0.5-1.5); MetHb 0.3 % (0.0-1.5); O2Hb 97.1 % (94.0-98.0)
[2024-12-04] MEDS: IV NS 1000 ML 1,000 ML IV PRN (06:51)
[2024-12-04] MEDS ORDERED: NOREPINEPHRINE BITARTRATE 32 MG in IV NORMAL SALINE 218 ML IV PRN (08:30)
[2024-12-04] MEDS ORDERED: PROPOFOL 50 ML IV PRN (08:30)
[2024-12-04] MEDS ORDERED: NOREPINEPHRINE 8MG/NS 250ML 250 ML IV PRN (08:45)
[2024-12-04] MEDS: FLUCONAZOLE 200 MG/NS 100ML IV 200 MG in PREMIXED 1 EACH IV ONE (10:17)
[2024-12-04] MEDS: CEFEPIME HCL 2 GM in IV DEXTROSE 5% 100 ML IV SCH (10:17)
[2024-12-04] MEDS: ENOXAPARIN SODIUM 40 MG/0.4 ML DISP.SYRIN SQ SCH (10:18)
[2024-12-04] MEDS: PANTOPRAZOLE SODIUM 40 MG VIAL IV SCH (10:19)
[2024-12-04] MEDS: methylPREDNISolone SOD SUCC 125 MG/2 ML VIAL IV SCH (10:20)
[2024-12-04] MEDS: MAGNESIUM SULFATE/D5W 100 ML IV SCH (10:21)
[2024-12-04 10:28] LABS: ABG BASE EXCESS -8.8 mmol/L (-2.0-3.0); ABG HCO3 18.3 mmol/L (21.0-28.0); ABG PCO2 43.4 mmHg (32.0-45.0); ABG PH 7.242 (7.350-7.450); ABG SITE RIGHT RADIAL; ABG TOTAL HEMOGLOBIN 13.7 G/dL (12.0-16.0); AaDO2 92.4 mmHg; COHb 0.3 % (0.5-1.5); MetHb 0.3 % (0.0-1.5); O2Hb 92.5 % (94.0-98.0); VT, ABG 400 mL
[2024-12-04] MEDS: PROPOFOL 100 ML IV PRN ×2 (11:33→15:34)
[2024-12-04] MEDS: POTASSIUM CHLORIDE 50 ML IV SCH (12:46)
[2024-12-04] MEDS: IPRATROPIUM BROMIDE 0.5 MG/2.5 ML NEBU NEB SCH (13:15)
[2024-12-04] MEDS: LEVALBUTEROL HCL NEB 0.63 MG/3 ML NEBU NEB SCH (13:15)
[2024-12-04] MEDS ORDERED: ETOMIDATE 20 MG/10 ML VIAL ONE (13:35)
[2024-12-04] MEDS: POTASSIUM CHLORIDE 20 MEQ in IV D5/ 0.9% NACL 1,000 ML IV PRN (14:24)
[2024-12-04] MEDS ORDERED: AZITHROMYCIN IV 500 MG in IV DEXTROSE 5% 250 ML IV SCH (21:00)
[2024-12-04] MEDS: PIPERACILLIN SODIUM/TAZOBACTAM 3.375 G in IV DEXTROSE 5% 100 ML IV SCH (21:31)
[2024-12-05] VITALS (27 sets, daily range): BP systolic 96–137; BP diastolic 58–82; TEMP 97.3–101.6; O2SAT 96–99
[2024-12-05] MEDS: POTASSIUM CHLORIDE 20 MEQ in IV D5W 1000ML 1,000 ML IV PRN (02:46)
[2024-12-05 05:07] LABS: BASOPHILS % (AUTO) 0.1 % (0.0-2.0); EOSINOPHILS % (AUTO) 0.2 % (0.0-7.0); HEMATOCRIT 37.3 % (31.2-41.9); HEMOGLOBIN 12.3 g/dL (10.9-14.3); LYMPHOCYTES # (AUTO) 0.4 K/uL (0.8-4.8); LYMPHOCYTES % (AUTO) 1.9 % (20.5-51.5); MEAN CORPUSCULAR HEMOGLOBIN 29.7 uug (24.7-32.8); MEAN CORPUSCULAR HGB CONC 33 g/dL (32.3-35.6); MEAN CORPUSCULAR VOLUME 90.3 fL (75.5-95.3); MONOCYTES % (AUTO) 25.1 % (0.0-11.0); NEUTROPHILS # (AUTO) 14.5 K/uL (1.8-8.9); NEUTROPHILS % (AUTO) 72.7 % (38.5-71.5); PLATELET COUNT (AUTO) 285 K/uL (179-408); RED BLOOD CELL COUNT(AUTO) 4.13 MIL/uL (3.63-4.92); RED CELL DISTRIBUTION WIDTH 13.7 % (12.3-17.7); WHITE BLOOD COUNT (AUTO) 19.9 K/uL (3.8-11.8)
[2024-12-05 05:17] LABS: DIFFERENTIAL COMMENT 1
[2024-12-05 05:31] LABS: ALBUMIN 1.9 g/dL (3.4-5.0); BILIRUBIN,DIRECT 0.4 mg/dL (0.0-0.2); BILIRUBIN,TOTAL 0.5 mg/dL (0.2-1.0); CALCIUM 8.9 mg/dL (8.5-10.1); CREATININE 1.1 mg/dL (0.6-1.3); MAGNESIUM 2.6 mg/dL (1.8-2.4); PHOSPHOROUS 1.7 mg/dL (2.5-4.9); POTASSIUM 3.9 mmol/L (3.5-5.1); TOTAL PROTEIN, SERUM 6.7 g/dL (6.4-8.2)
[2024-12-05 06:17] LABS: ABG BASE EXCESS -4.4 mmol/L (-2.0-3.0); ABG HCO3 19.9 mmol/L (21.0-28.0); ABG PCO2 34.3 mmHg (32.0-45.0); ABG PH 7.381 (7.350-7.450); ABG PO2 83.8 mmHg (83.0-108.0); ABG SITE LEFT RADIAL; ABG TOTAL HEMOGLOBIN 13.2 G/dL (12.0-16.0); AaDO2 96.2 mmHg; COHb 0.3 % (0.5-1.5); MetHb 0.4 % (0.0-1.5); VT, ABG 400 mL
[2024-12-05 06:41] LABS: BAND % (MANUAL) 11 % (0-10); LYMPHOCYTES % (MANUAL) 2 % (20-40); METAMYELOCYTES % 1 % (0-1); MONOCYTES % (MANUAL) 23 % (2-10); MYELOCYTES % 1 % (0-0); NEUTROPHILS % (MANUAL) 62 % (42-75); PLATELET ESTIMATE ADEQUATE
[2024-12-05] MEDS: FENTANYL CITRATE/PF 1,000 MCG in IV NORMAL SALINE 80 ML IV PRN (08:47)
[2024-12-05] MEDS: POTASSIUM CHLORIDE 20 MEQ in IV D5/ 0.9% NACL 1,000 ML IV PRN (08:47)
[2024-12-05 12:24] LABS: THYROID STIMULATING HORMONE 0.154 mIU/mL (0.358-3.740)
[2024-12-05 12:32] LABS: LACTIC ACID 3.4 mmol/L (0.4-2.0)
[2024-12-05] MEDS ORDERED: POTASSIUM CHLORIDE 20 MEQ in IV D5/ 0.9% NACL 1,000 ML IV PRN (15:00)
[2024-12-05] MEDS: SODIUM PHOSPHATE MM 15 MMOL in IV NORMAL SALINE 250 ML IV ONE (16:01)
[2024-12-05] MEDS: MIDAZOLAM HCL 50 MG in IV NORMAL SALINE 40 ML IV PRN (18:31)
[2024-12-05] MEDS: ACETAMINOPHEN 650 MG/20.3 ML LIQUID UDC GT PRN (19:40)
[2024-12-05 23:07] LABS: HIV-1 p24 ANTIGEN NON REACTIVE (NONREACTIVE); HIV-1/2 ANTIBODY NON REACTIVE (NONREACTIVE)
[2024-12-06] VITALS (43 sets, daily range): BP systolic 94–128; BP diastolic 62–74; TEMP 98–101; O2SAT 96–100
[2024-12-06 05:05] LABS: BASOPHILS % (AUTO) 0.1 % (0.0-2.0); HEMOGLOBIN 10.9 g/dL (10.9-14.3); LYMPHOCYTES # (AUTO) 0.7 K/uL (0.8-4.8); LYMPHOCYTES % (AUTO) 2.5 % (20.5-51.5); MEAN CORPUSCULAR HEMOGLOBIN 29.7 uug (24.7-32.8); MEAN CORPUSCULAR HGB CONC 33 g/dL (32.3-35.6); MEAN CORPUSCULAR VOLUME 89.8 fL (75.5-95.3); MONOCYTES # (AUTO) 0.5 K/uL (0.1-1.30); MONOCYTES % (AUTO) 1.8 % (0.0-11.0); NEUTROPHILS # (AUTO) 26.1 K/uL (1.8-8.9); NEUTROPHILS % (AUTO) 95.6 % (38.5-71.5); PLATELET COUNT (AUTO) 268 K/uL (179-408); RED BLOOD CELL COUNT(AUTO) 3.67 MIL/uL (3.63-4.92); RED CELL DISTRIBUTION WIDTH 13.8 % (12.3-17.7); WHITE BLOOD COUNT (AUTO) 27.3 K/uL (3.8-11.8)
[2024-12-06 05:18] LABS: DIFFERENTIAL COMMENT 1
[2024-12-06 05:21] LABS: CALCIUM 8.6 mg/dL (8.5-10.1); CREATININE 1.1 mg/dL (0.6-1.3); MAGNESIUM 2.5 mg/dL (1.8-2.4); PHOSPHOROUS 2.5 mg/dL (2.5-4.9); POTASSIUM 3.4 mmol/L (3.5-5.1)
[2024-12-06 06:04] LABS: ABG BASE EXCESS -4.1 mmol/L (-2.0-3.0); ABG HCO3 20.1 mmol/L (21.0-28.0); ABG PCO2 33.5 mmHg (32.0-45.0); ABG PH 7.395 (7.350-7.450); ABG PO2 93.7 mmHg (83.0-108.0); ABG SITE LEFT RADIAL; ABG TOTAL HEMOGLOBIN 11.8 G/dL (12.0-16.0); AaDO2 97.2 mmHg; COHb 0.3 % (0.5-1.5); MetHb 0.3 % (0.0-1.5); O2Hb 96.8 % (94.0-98.0); VT, ABG 400 mL
[2024-12-06 06:17] LABS: BAND % (MANUAL) 8 % (0-10); LYMPHOCYTES % (MANUAL) 2 % (20-40); MONOCYTES % (MANUAL) 6 % (2-10); NEUTROPHILS % (MANUAL) 84 % (42-75); PLATELET ESTIMATE ADEQUATE
[2024-12-06] MEDS: AZITHROMYCIN 250 MG TABLET PO SCH (06:30)
[2024-12-06] MEDS: FLUCONAZOLE 400MG /NS 200ML IV 400 MG in PREMIXED 1 EACH IV SCH (08:23)
[2024-12-06] MEDS: POTASSIUM CHLORIDE 50 ML IV SCH (08:35)
[2024-12-06] MEDS: IV NORMAL SALINE 250 ML IV ONE (16:42)
[2024-12-07] VITALS (22 sets, daily range): BP systolic 104–133; BP diastolic 49–81; TEMP 98–99; O2SAT 97–100
[2024-12-07 05:20] LABS: MONOCYTES # (AUTO) 0.5 K/uL (0.1-1.30); MONOCYTES % (AUTO) 1.4 % (0.0-11.0); NEUTROPHILS % (AUTO) 96.8 % (38.5-71.5)
[2024-12-07 05:22] LABS: BASOPHILS # (AUTO) 0.1 K/UL (0.0-0.2); BASOPHILS % (AUTO) 0.2 % (0.0-2.0); EOSINOPHILS % (AUTO) 0.1 % (0.0-7.0); HEMATOCRIT 33.1 % (31.2-41.9); HEMOGLOBIN 10.8 g/dL (10.9-14.3); LYMPHOCYTES # (AUTO) 0.5 K/uL (0.8-4.8); LYMPHOCYTES % (AUTO) 1.5 % (20.5-51.5); MEAN CORPUSCULAR HEMOGLOBIN 29.6 uug (24.7-32.8); MEAN CORPUSCULAR HGB CONC 33 g/dL (32.3-35.6); MEAN CORPUSCULAR VOLUME 90.9 fL (75.5-95.3); NEUTROPHILS # (AUTO) 32.3 K/uL (1.8-8.9); PLATELET COUNT (AUTO) 253 K/uL (179-408); RED BLOOD CELL COUNT(AUTO) 3.64 MIL/uL (3.63-4.92); RED CELL DISTRIBUTION WIDTH 14.4 % (12.3-17.7)
[2024-12-07 05:26] LABS: WHITE BLOOD COUNT (AUTO) 33.4 K/uL (3.8-11.8)
[2024-12-07 05:27] LABS: DIFFERENTIAL COMMENT 1
[2024-12-07 05:35] LABS: CALCIUM 8.8 mg/dL (8.5-10.1); CREATININE 0.8 mg/dL (0.6-1.3); MAGNESIUM 2.2 mg/dL (1.8-2.4); PHOSPHOROUS 2.6 mg/dL (2.5-4.9); POTASSIUM 4.5 mmol/L (3.5-5.1)
[2024-12-07 06:00] LABS: ABG BASE EXCESS -5.5 mmol/L (-2.0-3.0); ABG HCO3 22.5 mmol/L (21.0-28.0); ABG PCO2 55.4 mmHg (32.0-45.0); ABG PH 7.226 (7.350-7.450); ABG PO2 107.4 mmHg (83.0-108.0); ABG SITE LEFT RADIAL; ABG TOTAL HEMOGLOBIN 11.9 G/dL (12.0-16.0); AaDO2 96.9 mmHg; COHb 0.3 % (0.5-1.5); MetHb 0.4 % (0.0-1.5); O2Hb 97.2 % (94.0-98.0); VT, ABG 400 mL
[2024-12-07 06:28] LABS: BAND % (MANUAL) 6 % (0-10); LYMPHOCYTES % (MANUAL) 2 % (20-40); METAMYELOCYTES % 2 % (0-1); MONOCYTES % (MANUAL) 1 % (2-10); MYELOCYTES % 2 % (0-0); NEUTROPHILS % (MANUAL) 87 % (42-75); PLATELET ESTIMATE ADEQUATE
[2024-12-07 08:10] LABS: HEPATITIS B CORE AB, TOTAL Negative (Negative); HEPATITIS B SURFACE AB, QUAL Non Reactive (.); HEPATITIS B SURFACE AG Negative (Negative); HEPATITIS C VIRUS ANTIBODY Non Reactive (Non Reactive)
[2024-12-07] MEDS ORDERED: PIPE3.379 IV (10:01)
[2024-12-07] MEDS ORDERED: ACET650S26 GT (10:01)
[2024-12-07] MEDS ORDERED: methylPREDNISolone SOD SUCC IV (10:01)
[2024-12-07] MEDS ORDERED: LEVA0.635 NEB (10:01)
[2024-12-07] MEDS ORDERED: MENT113O TP (10:01)
[2024-12-07] MEDS ORDERED: ENOX40DI SQ (10:01)
[2024-12-07] MEDS ORDERED: PANT40VI IV (10:01)
[2024-12-07] MEDS ORDERED: IPRA0.2S6 NEB (10:01)
== END 2024-12-07 11:41 | disposition short-term general hospital (02) | DRG 871 ==
LOC: ER 21:16 → CCU 12-04 03:00
PROVIDERS: ADMIT Nurse Practitioner Family; ATTEND Nurse Practitioner Family
PROC: 5A09357 Assistance with Respiratory Ventilation, Less than 24 Consecutive Hours, Continuous Positive Airway Pressure (ICD-10-PCS; principal; 2024-12-04)
PROC: 5A1945Z Respiratory Ventilation, 24-96 Consecutive Hours (ICD-10-PCS; 2024-12-04)
PROC: 0BH17EZ Insertion of Endotracheal Airway into Trachea, Via Natural or Artificial Opening (ICD-10-PCS; 2024-12-04)
PROC: 0W9B30Z Drainage of Left Pleural Cavity with Drainage Device, Percutaneous Approach (ICD-10-PCS; 2024-12-05)
DX: A41.9 Sepsis, unspecified organism (principal); E43 Unspecified severe protein-calorie malnutrition; J15.9 Unspecified bacterial pneumonia; J96.01 Acute respiratory failure with hypoxia; J96.02 Acute respiratory failure with hypercapnia; N17.0 Acute kidney failure with tubular necrosis; J45.902 Unspecified asthma with status asthmaticus; K51.90 Ulcerative colitis, unspecified, without complications; E87.20 Acidosis, unspecified; E87.1 Hypo-osmolality and hyponatremia; B37.49 Other urogenital candidiasis; J91.8 Pleural effusion in other conditions classified elsewhere; J93.83 Other pneumothorax; K21.9 Gastro-esophageal reflux disease without esophagitis; Z79.51 Long term (current) use of inhaled steroids; E87.6 Hypokalemia; E86.0 Dehydration; E88.09 Other disorders of plasma-protein metabolism, not elsewhere classified; Z68.26 Body mass index [BMI] 26.0-26.9, adult; E05.90 Thyrotoxicosis, unspecified without thyrotoxic crisis or storm; E11.9 Type 2 diabetes mellitus without complications; T81.82XA Emphysema (subcutaneous) resulting from a procedure, initial encounter; Z79.899 Other long term (current) drug therapy; R65.20 Severe sepsis without septic shock
CPT/HCPCS: 36415; 36600; 71045; 71275; 82785; 82803; 83605; 83735; 84100; 84443; 84484; 85025; 86704; 86706; 86803; 87040; 87340; 87806; 93005; 93307; 94002; 94003; 94640; 94660; 94664; 94760; 99082-TC; A4606; A4663; G0378; J0330; J0456; J0692; J0696; J1171; J1450; J1650; J2060; J2250; J2405; J2470; J2543; J2919; J3010; J3475; J3480; J3490; J3590; J7040; J7042; J7050; J7070; J7614; Q0144; Q9967